=== PATIENT | male | born 1970 | race Caucasian/White ===

== ENCOUNTER 2016-09-20 20:54 | Emergency (ER) | payer MEDICARE, MEDICAID ==
[~2016-09-20] VITALS: Ht 160 cm; Wt 68.0 kg
[~2016-09-20 20:54] MED LIST: AMOXICILLIN 50500 MG PO; AMOXIL500 M1 PO; B/P PILL PO; CEPHALEXIN500 MG PO; CIPRO 500MG TA500 MG PO; CLINDAMYCIN HC150 MG PO; DARVOCET-N 1001 EACH PO; ENDOCET 325 MG-1 TA1 PO; HYDROCHLOROTH12.5 M1 PO; IBU-8800 MG PO; KEFLEX 500MG.500 MG PO; LORTAB 5/500 501 TAB PO; MEDROL 4MG. DOSE4 MG PO; MOTRIN600 MG PO; NOMEDS; NOMEDS *; PERCOCET 5/3251 EACH PO; SKELAXIN 800MG800 MG PO; ULTRACET 325 MG1 TAB PO; ULTRAM 50 MG TA50 MG PO; VICODIN 5/500 T1 TAB PO
[2016-09-20] MEDS ORDERED: BISOPROLOL 5MG T5 MG PO (21:01)
[2016-09-20] MEDS ORDERED: HYDROCHLOROTHIA1 TA2 PO (21:01)
[2016-09-20] MEDS ORDERED: ATORVASTATIN CA10 M1 PO (21:01)
[2016-09-20] MEDS ORDERED: ASPIR 8181 MG PO (21:02)
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
--- OUTSIDE RECORDS SUMMARY | 2016-09-20 21:08 | External Medical Summary Rpt ---
Author Author AGGIE Terry, [employer] Organization [employer] Address Unknown Phone Unavailable
--- OUTSIDE RECORDS SUMMARY | 2016-09-20 21:08 | External Medical Summary Rpt ---
Demographics Preferred Language Martiniquais Marital Status Unknown Yazidism Affiliation Unknown Race Unknown Ethnic Group Unknown Author Author , Organization [employer] Address Unknown Phone Unavailable Purpose Continuity of Care Document - through 2016 Immunization No patient found.
--- OUTSIDE RECORDS SUMMARY | 2016-09-20 21:08 | External Medical Summary Rpt ---
Demographics Preferred Language Kyrgyz Marital Status Unknown Amish Affiliation Unknown Race Unknown Ethnic Group Unknown Author Author , Organization [employer] Address Unknown Phone Unavailable Purpose Continuity of Care Document - through 2016 Immunization No patient found.
--- NOTE | 2016-09-20 21:23 | Emergency Room Report ---
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 PT DENIES HITTING HEAD OR LOC. PT RPTS HARDENED AREA IN RIGHT LOWER BACK, STS "THIS HAPPENS WHEN I FALL, SOMETIMES THEY HAVE TO KEEP ME AND DO SURGERY TO GET THE FLUID OUT." PT RPTS HE WAS DRINKING "A FEW BEERS TODAY." Onset of symptoms date/time:09/20/16/ or onset unknown for:MEDICAL HX UNKNOWN Treatment Prior to Arrival: [facility] Provided by: Sepsis Risk Assessment: Temp: 98.0 B/P: 152/117 MAP: 128 Pulse: 93 Resp: 18 Recent fever? N Clinical Suspician of Infection? N Mental Status: 1 - Regular (Normal Baseline) Sepsis Risk:Low Sepsis Risk Have you (or family members/close friends) recently traveled outside the [place]? N If Yes, where/when: Have you had exposure to infectious disease within the past month? N TB? Other? Specify: Source patient, RN notes reviewed, family, old records Exam Limitations intoxication Comment falls with swollen knot on rt l/s area with also sts to l/s area and lt flank area Cardiac Chest Pain Chest pain indicative of cardiac No Timing/Duration this evening Severity moderate ALLERGIES Coded Allergies: No Known Allergies (09/20/16) Home Medications Reported Medications LISINOPRIL/HYDROCHLOROTHIAZIDE (Lisinopril-Hctz 20-25 MG Tab) 1 TAB PO DAILY #30 Atorvastatin Calcium 10 MG PO DAILY #30 BISOPROLOL FUMARATE (Bisoprolol 5MG) 2.5 MG PO DAILY #30 Aspirin (Aspirin EC 81MG Tab) 81 MG PO DAILY History Medical History General CAD? No Angina: No [place]: No Hypertension? Yes Hyperlipidemia? No CHF? No DVT? No PE? No COPD? Yes Asthma? No Anemia? No GERD? No Gastric ulcers? No GI Bleed? No Hernia? No Thyroid Problems? No Hypothyroidism? No CVA? No Seizures? No Diabetes? No Renal Insuffiency? No End Stage Renal Disease? No UTI? No Stones? No BPH? No GB Disease: No Nephritic Syndrome? No Asplenia? No Hepatitis? No Sickle Cell Disease? No Arthritis? No Migraines? No Cataracts? No Glaucoma? No MRSA? No HIV? No TB? No Anxiety? No Depression? No Cancer? No Immunization Hx DT/Tetanus Unknown Flu Refused Pneumonia Refuses Surgical Hx Previous Surgery?Y TONSILS Back Surgery Family History Family Hx Diabetes No CAD Yes Hypertension Yes Hyperlipidemia Yes Cancer No TB No Social History Smoking Hx Smoker: Current Every Day Smoker Tobacco: Yes Type Cigarettes Packs/day 1 1/2 - 2 Packs Alcohol Alcohol: Yes Drugs none Additionial History Additional History has had back surg in past Review of Systems All Other Systems Reviewed and Negative Constitutional denies fever Eyes denies drainage ENT denies: ear pain, epistaxis, throat pain. Respiratory denies cough, denies shortness of breath, denies wheezing Cardiovascular denies chest pain, denies palpitations, denies syncope Gastrointestinal denies abdominal pain, denies diarrhea, denies vomiting Genitourinary denies: dysuria, frequency, hesitancy, hematuria. Musculoskeletal see HPI, back pain, denies joint pain, denies joint swelling, denies neck pain Skin see HPI, denies rash, other Psychiatric/Neurological denies headache, denies seizure Physical Exam Vital Signs Vital Signs Date Time Temp Pulse Resp B/P Pulse O2 O2 Flow FiO2 Ox Delivery Rate 09/202 98.3 84 20 134/84 97 09/20 2139 95 18 144/106 98 09/204 98.0 93 18 152/117 98 - WBC >12,000 or <4,000 or 10% bands? 2 or more SIRS Criteria Met? B/P:134/84 MAP:128 Creatinine >2.0? UA output<0.5ml/kg/hr for 2 hrs? Platelet count >100,000? Lactate >2.0mmol/1? INR >1.2 or PTT > than 60 sec? Evidence of Organ Dysfunction? Provider documented clinical suspician of infection? N Sepsis Criteria Count: 1 Sepsis Risk: Low Sepsis Risk General Appearance no apparent distress Eye Exam - bilateral eye PERRL, bilateral eye EOMI Ear, Nose, Throat normal ENT inspection Neck supple Respiratory Status No: respiratory distress. Lung Sounds bilateral: lungs clear. 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 No Results/Orders Laboratory Tests 09/20/165: Lactic Acid 1.2 09/20/162134: ESR 22 H 09/20/162134: Sodium 128 L, Potassium 4.0, Chloride 96 L, Carbon Dioxide 26, BUN 5 L, Creatinine 0.7 L, Estimated Creat Clear 126, Estimated GFR (MDRD) 121, Glucose 90, Calcium 7.9 L, Total Bilirubin 0.3, AST 74 H, ALT 69, Alkaline Phosphatase 104, Total Protein 7.0, Albumin 3.3 L, Globulin 3.7 H, Albumin/Globulin Ratio 0.9 L, PT 10.4, INR 0.97, WBC 9.3, RBC 3.68 L, Hgb 12.3 L, Hct 36.8 L, MCV 99.8 H, RDW 12.7, Plt Count 127 L, MPV 5.9 L, Gran % 60.0, Gran # 5.6, Lymphocytes % 31.7, Monocytes % 6.9, Eosinophils % 1.0, Basophils % 0.3, Lymphocytes # 3.0, Monocytes # 0.7, Eosinophils # 0.1, Basophils # 0.0, PUBS MCHC 33.5, MCH 33.4 H, Alcohols 265 H Current Medication Orders Sig/Anh Start time Last Medication Dose Route Stop Time Status Admin Iopamidol 75 ML ONCE ONE 09/20 2229 UNV 09/20 IV 09/20 Sodium Chloride 10 ML ONCE ONE 09/20 2229 UNV 09/20 IV 09/20 Sodium Chloride 10 ML PRN PRN 09/20 2129 AC IV 09/22 2123 Orders Procedure Date/time Status DIET-NOTHING BY MOUTH 09/21 B Active CULTURE, BLOOD 09/20 2318 Active LACTIC ACID 09/20 2318 Complete SED RATE 09/20 2318 Complete C-REACTIVE PROTEIN 09/[address] ABD & PELVIS W/ CONTRAST 09/[address] SCAN REQ 09/20 2124 Complete PELVIS AP ONLY 09/20 2124 Active CHEST-AP VIEW ONLY 09/20 2124 Active IV SALINE LOCK 09/20 2124 Active PROTHROMBIN TIME 09/20 2124 Complete COMPLETE METABOLIC PANEL 09/20 2124 Complete CBC WITH AUTO DIFF 09/20 2124 Complete ALCOHOL 09/[address] LUMBAR SPINE W/O CONTRAST 09/[address] SCAN REQ 09/20 2110 Complete XRAY/CT/US XRAY/CT/US 1 CT abdomen, pelvis, L-spine CT interpretation by discussed w/radiologist Time results known: 0020 CT Results abnormal (see chart) XRAY/CT/US 2 XRAY chest, pelvis XR interpretation by reviewed by me Xray Results no fracture seen Progress ED Progress Notes Date 09/21/16 Time 0024 Comment no change in exam or size of hematoma Departure Departure Time of Disposition 0013 Disposition DC Home or Self Care(routine) Clinical Impression Primary Impression: Hematoma Secondary Impressions: Alcohol intoxication Qualifiers: Complication of substance-induced condition: uncomplicated Qualified Code: F10.920 - Alcohol use, unspecified with intoxication, uncomplicated Fall Qualifiers: Encounter type: initial encounter Qualified Code: W19.XXXA - Unspecified fall, initial encounter Condition STABLE Referrals Jos Ramos MD (Family) discussed with dr edwards Patient Instructions DI for Hematoma (Bruise) Additional Instructions need to see pcp or ed in am for follow up Discharge Counseling Counseled pt/family regarding diagnosis, test results, follow up needs ED Critical Care Critical Care No at 0025
[2016-09-20 21:50] LABS: LYMPH % 31.7 % (10-50)
[2016-09-20 21:58] LABS: HEMOGLOBIN 12.3 g/dL (14.1-18.0)
[2016-09-21 00:30] VITALS: BP 116/87
--- NOTE | 2016-09-21 15:41 | RADIOLOGY REPORT PS360 ---
CHEST-AP VIEW ONLY COMPARISON: PA and lateral chest 04/21/2016 HISTORY: Chest pain after fall TECHNIQUE: PA chest FINDINGS: The lung alvarez are well expanded and appear clear of infiltrate. The cardiac silhouette and vascularity are normal and the costophrenic angles are clear. IMPRESSION: Negative PA chest
--- NOTE | 2016-09-21 15:41 | RADIOLOGY REPORT PS360 ---
CT LUMBAR SPINE W/O CONTRAST COMPARISON: CT scan lumbar spine 09/24/2011 HISTORY: Low back pain, recent fall TECHNIQUE: Multiple axial scans of the lumbar spine were obtained. Sagittal coronal reformats were evaluated as well. FINDINGS: There is mild dextroscoliotic curvature of the lumbar spine. There is severe degenerative disc disease at the L2-3 level with prominent endplate sclerosis and subchondral cysts of the endplates and marked disc space narrowing and vacuum phenomenon. The L1-2 disc normal. There is a small vacuum phenomenon of the L2-3 disc. There is mild diffuse disc bulging at L34, L4-5 and mild bilateral foraminal disc bulges at L5-S1 level. There is diffuse soft tissue swelling of the subadjacent tissues in the lower back there appears be some diffuse edema of the paraspinous musculature. The patient had a previous large hematoma the lower back on the previous CT scan in September 2011. There is moderate hypertrophic facet changes at L3-4, L4-5 and L5-S1. There is somewhat ill-defined area of low density in the left so as muscle probably representing edema but developing iliopsoas abscess cannot be excluded. This extends from the L3 vertebral body to the L4-5 disc space. IMPRESSION: 1. Ill-defined hypodensity left iliopsoas muscle somewhat concerning for developing iliopsoas abscess. 2. Dominant diffuse soft tissue swelling and diffuse edema involving the soft tissues of the lower back and paraspinous muscles probably representing a combination of edema from the recent injury and/or scarring from previous injury and 2012 and suggest clinical correlation for possible diffuse cellulitis involving subcutaneous tissues of the lower back, I agree the [facility] report
--- NOTE | 2016-09-21 16:40 | RADIOLOGY REPORT PS360 ---
PELVIS AP ONLY COMPARISON: AP pelvis for 27/07/2010 HISTORY: Pelvic pain after a fall TECHNIQUE: AP pelvis Findings: The iliac bones and pubic bones appear intact with no evidence of fracture. Both hips are normally articulated with no significant degenerative change seen. There is mild deformity of the left lateral border of the iliac bone and probably due to previous fracture. The SI joints and symptoms pubis appear normal. There is moderate atherosclerotic calcification of the iliac arteries. IMPRESSION: AP pelvis grossly negative for acute fracture
--- NOTE | 2016-09-25 07:36 | RADIOLOGY REPORT PS360 ---
CT ABD PELVIS W/ CONTRAST Ordering Physician: Dell Archer MD Patient Age: 45 years: Male HISTORY: BACK PAIN, FALLlow back pain due to fall. Lumbar spine and abdomen and pelvis TECHNIQUE: Helical CT scanning performed through the abdomen and pelvis with 75 cc [id number]. FINDINGS Extensive soft tissue abnormalities at the back. Beginning at the superficial soft tissues and skinAppears to be diffuse edema throughout the subcutaneous soft tissues of the entire lower back and.... This obliterates the normal low-density fat throughout the back.. However this same appearance was seen on March 2016 CTA. Questionably reflect some form of diffuse skin and subdermal edema or possibly skin thickening process?. This is more symptomatic than on previous CTA 2016. Period . Right flank overlying right iliac crest is a large focal probable focal hematoma measuring nearly 7 cm ( vs less likely some other hyperdense mass). Its epicenter seems to be the subdermal region Continuing more inferiorly at the pelvis there is a very large left gluteal hematoma which measures up to 14 cm wide 6 cm AP posterior to the left hip. Hyperdense central portion of this hematoma measures up to 9 cm with lower density rim. Old osseous fragment or radiopaque fragment measures up to 2 cm is seen off the left iliac crest unchanged since 2016 . Otherwise lung bases demonstrate mild chronic changes but no acute findings.. The kidneys appear satisfactory. Spleen and liver unremarkable. No acute or traumatic findings Adrenals unremarkable.. . Dextroscoliosis L-spine with marked degenerative disc space narrowing L2/3 to the left contributing to this scoliosis... Prominent reactive bone changes to the left, about this narrowed disc space as detailed in same day or recent recent CT lumbar report. IMPRESSION: ----- 1. The patient is a long-standing diffuse skin edema or skin skin thickening throughout the posterior back which is more pronounced today than on March 2016 CT of this region requires correlation 2. In addition there are large focal hematoma posteriorly.: A. The largest apparent hematoma at left buttocks involving left gluteal muscle- Overall spans nearly 14 cm transverse x 6 cm AP.. B. Another 7 cm of hematoma is seen right flank arising from I believe the subdermal tissues, just above the level of the iliac crest Above features Requires correlation. Curious pattern: . Reviewing prior studies this patient has had episodes of large hematomas dating back to September 2011 where when there was a massive soft tissue hematomas at the soft tissues of the back.. August 2010 CT also with a large hematoma at this left gluteal region. Clinical correlation required. Does the patient has underlying bleeding disorder? 3.. Progressive now marked disc space narrowing the left at L2/3 with associated dextroscoliosis with reactive endplate sclerosis & osseous irregularity having developed and progressed compared to multiple studies... Most likely this reflects progressive degenerative changes. However there is some inhomogeneity of the left psoas muscle at this level and throughout left psoas. There is some question of potential infection left psoas but I tend to doubt the case as similar appearance is seen in 2016 CT.. However if lumbar symptoms persist and there is elevated sedimentation rate or white count, may warrant MR with contrast to better exclude any additional infection at the left psoas or unlikely discitis L2/3
== END 2016-09-21 00:32 | disposition home or self-care (01) ==
LOC: ER 20:54
PROVIDERS: Emergency Medicine
DX: S30.0XXA Contusion of lower back and pelvis, initial encounter (principal); W01.0XXA Fall on same level from slipping, tripping and stumbling without subsequent striking against object, initial encounter; Y92.009 Unspecified place in unspecified non-institutional (private) residence as the place of occurrence of the external cause; F10.920 Alcohol use, unspecified with intoxication, uncomplicated; Z72.0 Tobacco use; I10 Essential (primary) hypertension; J44.9 Chronic obstructive pulmonary disease, unspecified
CPT/HCPCS: G6040; Q9967